=== PATIENT | female | born 1930 | race Caucasian/White ===

== ENCOUNTER → 2017-10-05 | Outpatient (CLI) | payer MEDICARE, BC ==
[~2017-10-05] MED LIST: ASPI81TA82 PO; FLAXOIL4 PO; LOPE2 PO; MULTTAB6 PO; NIAC500T18 PO; VITA100018 PO; ZOFR4TAB3 SL
[2017-10-05 18:49] LABS: ALBUMIN 3.7 GM/DL (3.4-5.0); BICARBONATE 27.5 MEQ/L (21.0-32.0); CALCIUM 12.8 MG/DL (8.5-10.1); CREATININE 0.98 MG/DL (0.50-1.00); FREE T4 0.89 NG/DL (0.76-1.46); TOTAL BILIRUBIN ADULT 0.2 MG/DL (0.2-1.0); TOTAL PROTEIN 7.4 GM/DL (6.4-8.2)
[2017-10-05 18:54] LABS: CALCIUM-PROTEIN CORRECTED 12.6 MG/DL (8.5-10.1)
== END ==
LOC: PLAB 14:56
PROVIDERS: ATTEND Family Medicine
DX: R53.83 Other fatigue (principal); E03.8 Other specified hypothyroidism; Z79.899 Other long term (current) drug therapy
CPT/HCPCS: 36415; 80053; 84439; 84443; 84480